=== PATIENT | female | born 1960 | race Caucasian/White ===

== ENCOUNTER 2016-11-10 19:58 | Inpatient (IN) | payer MEDICAID, OTHER ==
[~2016-11-10] VITALS: Ht 160 cm; Wt 60.8 kg
[~2016-11-10 19:58] MED LIST: CEPH-570 PO; FERR325T28 PO; HYDR-3326 PO
--- NOTE | 2016-11-10 20:43 | NUR ---
Pt to room, resting in position of comfort for self. Pt c/o severe right leg radiating from calf for several days. Pain worsened resulting in mech fall today. Pos CMS to RLE. No color change noted, no swelling noted. Pt denies CP, denies SOB. Family at bedside. Awaiting further eval.
--- NOTE | 2016-11-10 20:53 | NUR ---
Dr. Gonzalez at bedside for MSE
[2016-11-10] MEDS ORDERED: MORPHINE SULFATE 2 MG/1 ML DISP.SYRIN IV ONE (21:00)
[2016-11-10] MEDS ORDERED: ONDANSETRON 4 MG/2 ML VIAL IV ONE (21:00)
[2016-11-10] MEDS ORDERED: CALC-261 PO (21:20)
[2016-11-10] MEDS ORDERED: DOCU100T2 PO (21:20)
[2016-11-10] MEDS ORDERED: DOCU100C36 PO (21:20)
[2016-11-10] MEDS ORDERED: GABA-534 PO (21:20)
[2016-11-10] MEDS ORDERED: GABA-532 PO (21:20)
[2016-11-10] MEDS ORDERED: HYDR-552 PO (21:20)
[2016-11-10] MEDS ORDERED: OLAN7.5T3 PO (21:20)
[2016-11-10] MEDS ORDERED: ONDANSETRON 4 MG/2 ML VIAL ONE ×2 (21:23→22:34)
[2016-11-10] MEDS ORDERED: MORPHINE SULFATE 4 MG/1 ML DISP.SYRIN ONE ×2 (21:23→22:34)
[2016-11-10 21:24] LABS: BASOPHILS % (AUTO) 0.5 % (0.0-2.0); EOSINOPHILS # (AUTO) 0.1 K/uL (0.0-0.7); EOSINOPHILS % (AUTO) 1.6 % (0.0-7.0); HEMATOCRIT 41.5 % (37-47); LYMPHOCYTES # (AUTO) 2.2 K/UL (0.8-4.8); MEAN CORPUSCULAR HEMOGLOBIN 27.2 UUG (27.0-31.0); MEAN CORPUSCULAR HGB CONC 34 g/dL (32.0-37.0); MEAN CORPUSCULAR VOLUME 80.9 FL (81.0-99.0); MONOCYTES # (AUTO) 0.6 K/UL (0.1-1.30); MONOCYTES % (AUTO) 9.3 % (0.0-11.0); NEUTROPHILS # (AUTO) 3.5 K/UL (1.8-8.9); NEUTROPHILS % (AUTO) 54.6 % (38.5-71.5); PLATELET COUNT (AUTO) 308 K/UL (150-450); RED BLOOD CELL COUNT(AUTO) 5.13 MIL/UL (4.2-5.4); WHITE BLOOD COUNT (AUTO) 6.4 K/UL (4.0-11.2)
--- NOTE | 2016-11-10 21:24 | NUR ---
IV established, labs drawn and sent. Pt medicated for pain, will monitor for effects of medication. Pt resting in position of comfort for self. U/S completed.
[2016-11-10 21:30] LABS: CREATININE 0.7 mg/dL (0.6-1.3); POTASSIUM 3.8 mmol/L (3.5-5.1)
[2016-11-10 21:37] LABS: BILIRUBIN,DIRECT 0.1 mg/dL (0.0-0.2); BILIRUBIN,TOTAL 0.5 mg/dL (0.2-1.0); TOTAL PROTEIN, SERUM 7.4 g/dL (6.4-8.2)
--- NOTE | 2016-11-10 21:54 | NUR ---
Pt to and from CT via [facility]. Pt resting in position of comfort for self. Pt conts to c/o pain, sts no change with previous medication. Pt requesting more medication. MD notified, awaiting orders.
[2016-11-10] MEDS ORDERED: ONDANSETRON IV *ER 4 MG/2 ML VIAL IV ONE (22:15)
[2016-11-10] MEDS ORDERED: MORPHINE SULFATE 4 MG/1 ML DISP.SYRIN IV ONE (22:15)
--- NOTE | 2016-11-10 22:27 | NUR ---
Pt medicated for cont. pain, will monitor for effects of medication. Pt resting in position of comfort for self. Admission pending.
--- NOTE | 2016-11-10 22:27 | NUR ---
Panel call placed. Awaiting call back
[2016-11-10] MEDS ORDERED: THYROID MEDICATION PO (22:44)
--- NOTE | 2016-11-10 22:57 | NUR ---
2nd attempt at panel call placed. Call back pending.
[2016-11-10] MEDS ORDERED: LEVO25TA9 PO (23:08)
--- NOTE | 2016-11-10 23:26 | NUR ---
Pt resting in position of comfort for self. Pt conts to c/o pain. Sts no change from previous medication. MD notified. Awaiting further orders.
[2016-11-10] MEDS ORDERED: IV NS 1000 ML 1,000 ML IV PRN (23:43)
[2016-11-10] MEDS ORDERED: ZOLPIDEM 5 MG TABLET PO PRN (23:45)
[2016-11-10] MEDS ORDERED: Z GUARD REMEDY PASTE 57 GM TUBE TOP PRN (23:45)
[2016-11-10] MEDS ORDERED: HYDROCODONE/APAP 5-325MG TABLET PO PRN (23:45)
[2016-11-10] MEDS ORDERED: MAGNESIUM HYDROXIDE 30 ML LIQUID UDC PO PRN (23:45)
[2016-11-10] MEDS ORDERED: ACETAMINOPHEN 325 MG TABLET PO PRN (23:45)
[2016-11-10] MEDS ORDERED: HYDROCODONE/APAP 10-325 MG TABLET PO PRN (23:45)
--- NOTE | 2016-11-10 23:55 | NUR ---
nsg: pt received fr er, a/o x 4 with dx of abd pain. also c/o right leg pain. denies n/v at this time. v/s stable. family at the bedside. call light within reach.
[2016-11-11 00:01] VITALS: BP 144/86
[2016-11-11] MEDS: ONDANSETRON 4 MG/2 ML VIAL IV PRN ×2 (01:31→07:44)
[2016-11-11] MEDS: MORPHINE SULFATE 2 MG/1 ML DISP.SYRIN IV PRN ×2 (01:32→07:44)
[2016-11-11] MEDS ORDERED: MORPHINE SULFATE 2 MG/1 ML DISP.SYRIN ONE (01:39)
[2016-11-11] MEDS ORDERED: ONDANSETRON 4 MG/2 ML VIAL ONE (01:39)
--- NOTE | 2016-11-11 04:42 | NUR ---
nsg: all needs attended. no acute distress noted.
[2016-11-11 05:00] VITALS: BP 118/74
[2016-11-11] MEDS ORDERED: PANTOPRAZOLE SODIUM 40 MG TABLET.DR PO SCH (07:00)
[2016-11-11] MEDS ORDERED: LEVOTHYROXINE SODIUM 25 MCG TABLET PO SCH (07:00)
[2016-11-11 07:25] LABS: CREATININE 0.8 mg/dL (0.6-1.3); MAGNESIUM 1.9 mg/dL (1.8-2.4); PHOSPHOROUS 4.3 mg/dL (2.5-4.9); POTASSIUM 3.7 mmol/L (3.5-5.1)
[2016-11-11 07:29] LABS: THYROID STIMULATING HORMONE 12.655 mIU/mL (0.358-3.740)
[2016-11-11 10:24] LABS: BASOPHILS # (AUTO) 0.1 K/uL (0.0-8.0); BASOPHILS % (AUTO) 0.7 % (0.0-2.0); EOSINOPHILS # (AUTO) 0.1 K/uL (0.0-0.7); EOSINOPHILS % (AUTO) 1.5 % (0.0-7.0); HEMATOCRIT 39.1 % (37-47); HEMOGLOBIN 13.2 G/DL (12.0-16.0); MEAN CORPUSCULAR HEMOGLOBIN 27.6 UUG (27.0-31.0); MEAN CORPUSCULAR HGB CONC 34 g/dL (32.0-37.0); MEAN CORPUSCULAR VOLUME 81.8 FL (81.0-99.0); MONOCYTES # (AUTO) 0.6 K/UL (0.1-1.30); MONOCYTES % (AUTO) 7.8 % (0.0-11.0); NEUTROPHILS # (AUTO) 4.4 K/UL (1.8-8.9); PLATELET COUNT (AUTO) 264 K/UL (150-450); RED BLOOD CELL COUNT(AUTO) 4.78 MIL/UL (4.2-5.4); WHITE BLOOD COUNT (AUTO) 7.2 K/UL (4.0-11.2)
[2016-11-11 12:16] VITALS: BP 115/72
[2016-11-11 15:12] LABS: *BILIRUBIN,URIN NEGATIVE (NEGATIVE); *BLOOD, URINE Trace-lysed (NEGATIVE); *CLARITY,URINE CLEAR (CLEAR); *KETONES,URINE NEGATIVE (NEGATIVE); *PROTEIN,URINE NEGATIVE (NEGATIVE); *UROBILINOGEN,URINE 0.2 E.U./dl (NORMAL); LEUKOCYTE ESTERASE ,URINE 1+ (NEGATIVE); NITRITE, URINE NEGATIVE (NEGATIVE); UGLUCOSE NEGATIVE (NEGATIVE)
[2016-11-11 15:13] LABS: *COLOR,URINE LIGHT YELLOW (YELLOW)
[2016-11-11 15:18] LABS: BACTERIA,URINE FEW /HPF (NONE SEEN); RBC,URINE 0-3 /HPF (0-3); SQUAMOUS EPITHELIAL CELL,UR FEW /HPF (NONE SEEN)
[2016-11-11] MEDS ORDERED: FAMO-132 PO (16:30)
[2016-11-11] MEDS ORDERED: HYDR-3326 PO (16:30)
[2016-11-11] MEDS ORDERED: SULF1TAB48 PO (16:30)
[2016-11-11 16:38] VITALS: BP 111/72
--- NOTE | 2016-11-11 17:00 | NUR ---
DISCHARGE NOTE: PT IS READY TO BE D/C. EDUCATION IS PROVIDED BY THE PHARMACIST, EDUCATION PROVIDED BY THE NURSE, IV IS REMOVED. ALL SAFETY NEEDS ARE MET. NO S/S OF RESPIRATORY DISTRESS NOTED. NO PAIN/NAUSEA NOTED. PT LEFT VIA PRIVATE CAR WITH FAMILY.
== END 2016-11-11 17:30 | disposition home or self-care (01) | DRG 243 ==
LOC: ER 20:00 → MED 23:42
PROVIDERS: ATTEND Contractor
DX: K21.9 Gastro-esophageal reflux disease without esophagitis (principal); N39.0 Urinary tract infection, site not specified; F95.2 Tourette's disorder; E03.9 Hypothyroidism, unspecified; Z85.42 Personal history of malignant neoplasm of other parts of uterus; Z90.710 Acquired absence of both cervix and uterus; Z90.49 Acquired absence of other specified parts of digestive tract; Z79.899 Other long term (current) drug therapy; M47.897 Other spondylosis, lumbosacral region; W19.XXXA Unspecified fall, initial encounter; Y92.009 Unspecified place in unspecified non-institutional (private) residence as the place of occurrence of the external cause; Z85.828 Personal history of other malignant neoplasm of skin; M47.814 Spondylosis without myelopathy or radiculopathy, thoracic region; M23.91 Unspecified internal derangement of right knee
CPT/HCPCS: 36415; 70030-TC; 71010; 73560; 83690; 83735; 84100; 84443; 85025; 93005; A4663; J2270; J2405; J7030

== ENCOUNTER 2021-08-16 12:15 | Emergency (ER) | payer MEDICAID, OTHER ==
[~2021-08-16] VITALS: Ht 152.4 cm; Wt 60.3 kg
[~2021-08-16 12:15] MED LIST changes: -CEPH-570 PO; +FAMO-132 PO; -FERR325T28 PO; +LEVO25TA9 PO; +SULF1TAB48 PO
[2021-08-16 13:04] LABS: *BILIRUBIN,URIN NEGATIVE (NEGATIVE); *BLOOD, URINE 3+ (NEGATIVE); *CLARITY,URINE SLIGHTLY CLOUDY (CLEAR); *COLOR,URINE YELLOW (YELLOW); *KETONES,URINE NEGATIVE (NEGATIVE); *UROBILINOGEN,URINE 0.2 E.U./dl (NORMAL); LEUKOCYTE ESTERASE ,URINE TRACE (NEGATIVE); NITRITE, URINE NEGATIVE (NEGATIVE); UGLUCOSE NEGATIVE (NEGATIVE)
[2021-08-16 13:39] LABS: BILIRUBIN,DIRECT 0.2 mg/dL (0.0-0.2); BILIRUBIN,TOTAL 0.8 mg/dL (0.2-1.0); CREATININE 0.9 mg/dL (0.6-1.3); HEMATOCRIT 38.4 % (31.2-41.9); MEAN CORPUSCULAR HEMOGLOBIN 27.9 uug (24.7-32.8); PLATELET COUNT (AUTO) 211 K/uL (179-408); POTASSIUM 3.4 mmol/L (3.5-5.1); TOTAL PROTEIN, SERUM 7.4 g/dL (6.4-8.2)
[2021-08-16 13:41] LABS: MUCUS,URINE FEW /LPF (0-FEW)
[2021-08-16 13:42] LABS: RBC,URINE 80-100 /HPF (0-3)
[2021-08-16 13:43] LABS: BACTERIA,URINE FEW /HPF (NONE SEEN); SQUAMOUS EPITHELIAL CELL,UR FEW /HPF (NONE SEEN)
[2021-08-16 13:44] LABS: FATTY CASTS,URINE 0-3 /LPF (NONE SEEN)
--- NOTE | 2021-08-16 14:24 | NUR ---
Patient is resting comfortably on gurney, NAD.
[2021-08-16 15:09] LABS: BAND % (MANUAL) 1 % (0-10); LYMPHOCYTES % (MANUAL) 19 % (20-40); MONOCYTES % (MANUAL) 13 % (2-10); NEUTROPHILS % (MANUAL) 67 % (42-75)
[2021-08-16] MEDS ORDERED: CEPH500C2 PO (16:54)
--- NOTE | 2021-08-16 17:14 | NUR ---
Patient discharged to home in stable condition with brisk steady gait. Verbal after care instructions were given to patient and spouse in [facility] by JOAN Montero with Dr Mortensen. Dr Mortensen was unable to print the paper discharge instructions 2/2 printer issues. Patient and spouse wanted to leave ER as soon as possible and can not wait for the printer to work. Patient and spouse verbalized understanding and compliance of verbal instructions. Stressed follow up with primary doctor or return to ER for worsening s/s.
[2021-08-16 17:15] VITALS: BP 131/83
== END 2021-08-16 17:15 | disposition home or self-care (01) ==
LOC: ER 12:17
DX: B34.9 Viral infection, unspecified (principal); Z20.822 Contact with and (suspected) exposure to COVID-19; R31.29 Other microscopic hematuria; J34.89 Other specified disorders of nose and nasal sinuses; R51.9 Headache, unspecified; E87.6 Hypokalemia; E03.9 Hypothyroidism, unspecified; Z85.42 Personal history of malignant neoplasm of other parts of uterus; Z90.710 Acquired absence of both cervix and uterus
CPT/HCPCS: 36415; 70030-TC; 70486; 71045; 76770; 83605; 85025; 87040; 87086; A4663

== ENCOUNTER 2023-10-19 14:16 | Emergency (ER) | payer OTHER ==
[~2023-10-19] VITALS: Ht 152.4 cm; Wt 60.3 kg
[~2023-10-19 14:16] MED LIST changes: +CEPH500C2 PO
[2023-10-19 15:27] LABS: *BLOOD, URINE 3+ (NEGATIVE); *COLOR,URINE RED (YELLOW); *KETONES,URINE 2+ (NEGATIVE); LEUKOCYTE ESTERASE ,URINE 3+ (NEGATIVE); NITRITE, URINE NEGATIVE (NEGATIVE); PH,URINE 8.5 (5.0-8.0); UGLUCOSE TRACE (NEGATIVE)
[2023-10-19 15:28] LABS: BASOPHILS # (AUTO) 0.1 K/UL (0.0-0.2); BASOPHILS % (AUTO) 1.8 % (0.0-2.0); EOSINOPHILS # (AUTO) 0.2 K/uL (0.0-0.7); EOSINOPHILS % (AUTO) 2.7 % (0.0-7.0); HEMATOCRIT 41.4 % (31.2-41.9); HEMOGLOBIN 14.2 g/dL (10.9-14.3); LYMPHOCYTES # (AUTO) 2.5 K/uL (0.8-4.8); LYMPHOCYTES % (AUTO) 32.4 % (20.5-51.5); MEAN CORPUSCULAR HEMOGLOBIN 27.4 uug (24.7-32.8); MEAN CORPUSCULAR HGB CONC 34 g/dL (32.3-35.6); MEAN CORPUSCULAR VOLUME 79.9 fL (75.5-95.3); MONOCYTES # (AUTO) 0.6 K/uL (0.1-1.30); NEUTROPHILS # (AUTO) 4.3 K/uL (1.8-8.9); NEUTROPHILS % (AUTO) 55.1 % (38.5-71.5); PLATELET COUNT (AUTO) 353 K/uL (179-408); RED BLOOD CELL COUNT(AUTO) 5.18 MIL/uL (3.63-4.92); RED CELL DISTRIBUTION WIDTH 13.9 % (12.3-17.7); WHITE BLOOD COUNT (AUTO) 7.9 K/uL (3.8-11.8)
[2023-10-19 15:33] LABS: DIFFERENTIAL COMMENT 1
[2023-10-19 15:33] LABS: *PROTEIN,URINE 3+ (NEGATIVE)
[2023-10-19 15:34] LABS: *BILIRUBIN,URIN 3+ (NEGATIVE); *CLARITY,URINE BLOODY (CLEAR)
[2023-10-19 15:38] LABS: CALCIUM 9.4 mg/dL (8.5-10.1); CREATININE 0.5 mg/dL (0.6-1.3); POTASSIUM 3.8 mmol/L (3.5-5.1)
[2023-10-19] MEDS ORDERED: IOHEXOL 300MG/ML 100 ML INFUS..BTL ONE (15:40)
[2023-10-19] MEDS ORDERED: IV NORMAL SALINE 250 ML IV ONE (15:40)
[2023-10-19] MEDS ORDERED: SWABABLE VALVE TRANSFER SET EA MC ONE (15:40)
[2023-10-19 15:44] LABS: BILIRUBIN,DIRECT 0.2 mg/dL (0.0-0.2); BILIRUBIN,TOTAL 0.8 mg/dL (0.2-1.0); TOTAL PROTEIN, SERUM 7.7 g/dL (6.4-8.2)
[2023-10-19 16:50] LABS: BACTERIA,URINE MODERATE /HPF (NONE SEEN); RBC,URINE TNTC /HPF (0-3); SQUAMOUS EPITHELIAL CELL,UR FEW /HPF (NONE SEEN); WBC,URINE TNTC /HPF (0-3)
[2023-10-19] MEDS ORDERED: SULF1TAB48 PO (17:03)
[2023-10-19 17:48] VITALS: BP 133/74; TEMP 98; O2SAT 99
== END 2023-10-19 17:48 | disposition home or self-care (01) ==
LOC: ER 14:16
DX: N32.9 Bladder disorder, unspecified (principal); N39.0 Urinary tract infection, site not specified; K21.9 Gastro-esophageal reflux disease without esophagitis; E03.9 Hypothyroidism, unspecified; Z90.710 Acquired absence of both cervix and uterus; Z79.899 Other long term (current) drug therapy; Z88.8 Allergy status to other drugs, medicaments and biological substances
CPT/HCPCS: 36415; 83690; 85025; A4606; A4663; Q9967